=== PATIENT | male | born 1965 | race Caucasian/White ===

== ENCOUNTER 2019-11-22 13:16 | Emergency (ER) | payer BC, SELFPAY ==
[2019-11-22 13:21] VITALS: BP 134/96; RESP 16; TEMP 36.6; O2SAT 99
--- NOTE | 2019-11-22 13:24 | ED.URI ---
HPI - URI/Sore Throat General Chief Complaint: Upper Respiratory Infection Stated Complaint: body aches/congestion/sore throat Time Seen by Provider: 11/22/19 13:31 Source: patient and RN notes reviewed Mode of arrival: ambulatory Limitations: no limitations and clinical condition History of Present Illness HPI Narrative: 54 year old male who presents to [facility] with complaints of sore throat, body aches, nasal congestion, headache, cough, hoarseness and fatigue for the past 3-4 days. Patient states that he has noted a lot of yellowish sinus drainage with some blood noted in drainage, patient states that he has sinus pressure in his facial region. Patient denies any known fevers, chills or sweats, has been taking Ibuprofen for his discomfort MD elicited complaint: cough, sore throat, rhinorrhea, nasal congestion, sinus pain and other (body aches,headaches) Pertinent past history: sinusitis Onset (ago): day(s) (4) Consistency: constant Severity: moderate Pain scale (0-10): 3 Description of mucous: yellow Able to tolerate fluids by mouth: Yes Exacerbating factors: swallowing and changing head position Relieving factors: nothing Associated symptoms: voice changes, myalgias, rhinorrhea, nasal congestion and sore throat Treatments prior to arrival: acetaminophen and ibuprofen Related Data Allergies Allergy/AdvReac Type Severity Reaction Status Date / Time Penicillins Allergy Unknown Unknown Verified 06/12/19 18:27 Review of Systems Review of Systems: Narrative: CONSTITUTIONAL: Denies fever, chills, or sweats. EYES: Denies visual changes, redness, or discharge. ENT:positive rhinorrhea, congestion,sinus pressure, sore throat, no otalgia. CARDIOVASCULAR: Denies chest pain, palpitations, or edema. RESPIRATORY: positive cough no dyspnea. GASTROINTESTINAL: Denies abdominal pain, nausea, vomiting, or diarrhea. GENITOURINARY: Denies dysuria or hematuria. SKIN: Denies rash or itching. MUSCULOSKELETAL: Denies back pain, joint pain, body aches NEUROLOGIC:positive headache, no numbness, or weakness. PSYCHIATRIC: Denies anxiety or depression. All systems reviewed & are unremarkable except as noted in HPI and below PMFSH Past Medical History Medical History (Updated 11/22/19 @ 13:55 by Mona Gonzales NP) Diverticulitis Social History Social History (Updated 11/22/19 @ 14:10 by RADHA Gillis Smoking status: Never smoker Living arrangements: with family Gender identity (if verbalized by the patient): Male Comments At time of signature, agree with nursing past medical, surgical, social and family history. There is no relevant family history pertinent to the presenting complaint Exam Narrative: Exam Narrative: GENERAL: Well-appearing, well-nourished, and in no acute distress. HEAD: Normocephalic, atraumatic. EYES: PERRLA and EOMI. ENT: Nares red, swollen especially right nare, yellow rhinorrhea with blood tinged drainage no epistaxis. Mucous membranes moist.TM's normal with good light reflex, throat red with no lesions or exudates, tonsils swollen, post nasal drainage noted. NECK: Supple.lymphadenopathy CHEST: Clear to auscultation. No respiratory distress.dry cough HEART: Regular rate and rhythm. No murmur heard. Normal peripheral pulses. ABDOMEN: Soft, nontender, nondistended, normal active bowel sounds. EXTREMITIES: Normal range of motion. No edema. SKIN: Warm, dry, no rash. NEURO: No focal deficits. Alert and oriented x3. Course Vital Signs Vital signs: Vital Signs Temperature 36.6 C 11/22/19 13:21 Respiratory Rate 16 11/22/19 13:21 Blood Pressure 134/96 H 11/22/19 13:21 Pulse Oximetry 99 11/22/19 13:21 Temperature 36.6 C 11/22/19 13:21 Respiratory Rate 16 11/22/19 13:21 Blood Pressure 134/96 H 11/22/19 13:21 Pulse Oximetry 99 11/22/19 13:21 MDM - URI/Sore Throat Differential Diagnosis Differential diagnosis: Likely upper respiratory infection, sinusitis, viral infection, inf
== END 2019-11-22 14:02 | disposition home or self-care (01) ==
PROVIDERS: Emergency Provider Registered Nurse
DX: J00 Acute nasopharyngitis [common cold] (principal); J01.90 Acute sinusitis, unspecified
CPT/HCPCS: 87081; 87804; 87880; 99213; G0463

== ENCOUNTER 2024-04-01 11:56 | Outpatient (CLI) | payer BC, SELFPAY ==
--- NOTE | ~2024-04-01 | XR_ITS ---
XR lumbar spine 2-3V 04/01/2024 12:15 Indication: Low back Procedure: 3 views lumbar spine Comparison: No prior studies for comparison. Findings: Vertebral body heights are maintained. There is grade 1 degenerative spondylolisthesis at L 4-5. There is disc narrowing at L5-S1. No acute fracture, subluxation or dislocation. Dextroscoliosis . Sacral foramen are symmetric. Impression: 1: Mild lumbar spondylosis with dextroscoliosis. Reviewed, dictated and finalized at location B. Impression: 1: Mild lumbar spondylosis with dextroscoliosis.
== END 2024-04-01 11:57 ==
PROVIDERS: PCP Emergency Medicine; Visit Provider Internal Medicine
DX: M47.896 Other spondylosis, lumbar region (principal)
CPT/HCPCS: 72100

== ENCOUNTER 2024-07-27 14:21 | Outpatient (CLI) | payer BC, SELFPAY ==
--- NOTE | ~2024-07-27 | MR_ITS ---
EXAMINATION: MR lumbar spine wo con DATE: 07/27/2024 14:50 INDICATION: Low back pain. Right buttock pain. TECHNIQUE: Magnetic resonance imaging (MRI) of the lumbar spine was performed without intravenous con trast. Sequences included sagittal T2-weighted FSE, sagittal T2-weighted FS FSE, sagittal T1-weighted FSE, and axial T2-weighted FSE. COMPARISON: Lumbar spine radiographs 04/01/24 FINDINGS: Alignment is normal. There are Schmorl's nodes at multiple levels. There is mildly decrease d disc height at L4-L5 and moderately decreased disc height at L5-S1. The distal spinal cord signal i ntensity is normal. The conus medullaris is at L1. The following disc levels are specifically discuss ed: L1-L2: The disc does not extend beyond the endplate margin. There is moderate bilateral facet joint o steoarthritis. There is no neural foraminal stenosis. There is no central canal stenosis. L2-L3: The disc is bulging. There is mild bilateral facet joint osteoarthritis. There is mild bilater al neural foraminal stenosis. There is mild central canal stenosis. L3-L4: The disc is bulging. There is moderate bilateral facet joint osteoarthritis. There is mild charli ateral neural foraminal stenosis. There is mild central canal stenosis. L4-L5: The disc is bulging with superimposed right subarticular zone extrusion with mass effect on ri ght L5 nerve root in right lateral recess. There is severe bilateral facet joint osteoarthritis. Ther e is mild bilateral neural foraminal stenosis. There is mild central canal stenosis. There is severe stenosis of right lateral recess. L5-S1: The disc is bulging and has an annular fissure. There is moderate bilateral facet joint osteoa rthritis. There is mild bilateral neural foraminal stenosis. There is mild central canal stenosis. IMPRESSION: 1. Moderate lumbar spondylosis. Of note, an extrusion at L4-L5 exerts mass effect on right L5 nerve r oot. Reviewed, dictated and finalized at location A. [employer] IMPRESSION: 1. Moderate lumbar spondylosis. Of note, an extrusion at L4-L5 exerts mass effe ct on right L5 nerve root.
== END 2024-07-27 14:22 | disposition home or self-care (01) ==
LOC: GOSHIMG 14:22
PROVIDERS: PCP Internal Medicine; Visit Provider Orthopaedic Surgery
DX: M43.06 Spondylolysis, lumbar region (principal)
CPT/HCPCS: 72148